=== PATIENT | female | born 1940 | race Caucasian/White ===

== ENCOUNTER 2016-04-25 14:22 | Emergency (ER) | payer OTHER ==
[~2016-04-25] VITALS: Ht 160 cm; Wt 64.5 kg
[~2016-04-25 14:22] MED LIST: ACIP20TA19 PO; ALBU17I INH; BUPR-175 PO; LEVO75TA42 PO; PYRI200T4 PO; SULF-154 PO; TRAZ50TA4 PO
[2016-04-25 14:31] VITALS: BP 138/63; PULSE 95; RESP 16; TEMP 97.6; O2SAT 97
[2016-04-25] MEDS ORDERED: SODIUM CHLOR 0.9% 1000 ML INJ 1,000 ML IV SCH (14:47)
[2016-04-25] MEDS ORDERED: ONDANSETRON HCL 4 MG/2 ML VIAL IVP ONE (15:00)
[2016-04-25] MEDS ORDERED: SODIUM CHLORIDE 0.9% FLUSH 5 ML FLUSH IVF PRN (15:00)
[2016-04-25] MEDS ORDERED: FAMOTIDINE 20 MG/2 ML VIAL IV PUSH ONE (15:00)
[2016-04-25] MEDS ORDERED: MORPHINE SULFATE 4 MG/ML INJ IV PUSH ONE (15:00)
[2016-04-25] MEDS ORDERED: LEVO25TA4 PO (15:03)
[2016-04-25 15:21] LABS: BLOOD, URINE NEG (NEG); GLUCOSE,URINE NEG (NEG); KETONE, URINE NEG (NEG); NITRITE,URINE NEG (NEG); PH, URINE 5.5 (5.0-8.5)
[2016-04-25 15:22] LABS: AUTOMATED NEUTROPHIL # 7.2 TH/MM3 (1.8-7.7); BASOPHIL # 0.1 TH/MM3 (0-0.2); BASOPHIL % 1.7 % (0.0-2.0); EOSINOPHIL # 0.1 TH/MM3 (0-0.4); HEMATOCRIT 42.6 % (35.0-46.0); HEMO FLAGS DIFF FINAL; LYMPHOCYTE # 0.8 TH/MM3 (1.0-4.8); MEAN CELL VOLUME 86.2 FL (80.0-100.0); MEAN CORPUSCULAR HEMOGLOBIN 28.7 PG (27.0-34.0); MEAN CORPUSCULAR HGB CONC 33.3 % (32.0-36.0); MONO % 3.1 % (0.0-8.0); NEUT % 85.2 % (16.0-70.0); PLATELET COUNT 174 TH/MM3 (150-450); RED BLOOD COUNT 4.94 MIL/MM3 (4.00-5.30); RED CELL DISTRIBUTION WIDTH 13.2 % (11.6-17.2); WHITE BLOOD COUNT 8.5 TH/MM3 (4.0-11.0)
[2016-04-25 15:31] LABS: COMMENT (UR) CULT NOT INDICATED; CULTURE IF INDICATED CULT NOT INDICATED; METHOD OF COLLECTION CLEAN CATCH; MUCUS URINE FEW /lpf (OCC); SQUAMOUS EPITHELIAL CELL URINE 0-5 /hpf (0-5); URINE COLOR YELLOW (YELLW/STRAW); WBC, URINE 0-2 /hpf (0-5)
[2016-04-25 15:39] LABS: POTASSIUM 4.1 MEQ/L (3.5-5.1)
[2016-04-25 15:44] VITALS: O2SAT 98
[2016-04-25 15:44] LABS: APTT (PATIENT) 25.7 SEC (24.3-30.1); BICARBONATE 23.6 MEQ/L (21.0-32.0); INTERNATIONAL NORMALIZED RATIO 0.9 RATIO; PROTHROMBIN TIME - PATIENT 10.4 SEC (9.8-11.6)
--- NOTE | 2016-04-25 15:47 | PD ---
HPI Chief Complaint: Abdominal Pain Time Seen by Provider: 14:40 Travel History International Travel<30 days: No Contact w/Intl Traveler<30days: No Traveled to known affect area: No History of Present Illness HPI Patient is a 76-year-old female who comes in complaining of abdominal pain that started earlier today. She thought she might have been constipated, so she took a laxative and had a bowel movement, but continued to have pain to her belly. She says she has been feeling nauseous. She denies any dysuria. She says the pain is in the middle of her abdomen. She denies seeing any blood in her stool. She denies any fever or chills. She has multiple other complaints of been going on for several months, which she attributes to severe anxiety. She has been taking Xanax as needed for anxiety. [facility] Past Medical History Anxiety: Yes Depression: Yes GERD: Yes Hiatal Hernia: Yes Thyroid Disease: Yes Influenza Vaccination: Yes ?: Not Social History Alcohol Use: Yes (WINE WITH DINNER) Tobacco Use: No Substance Use: No Allergies-Medications (Allergen,Severity, Reaction): Coded Allergies: Prednisone (Verified Allergy, Mild, 05/11/07) Reported Meds & Prescriptions Reported Meds & Active Scripts Active Zofran Odt (Ondansetron Odt) 4 Mg Tab 4 Mg SL Q6HR PRN Bentyl (Dicyclomine HCl) 20 Mg Tab 20 Mg PO QID PRN Reported Levothyroxine (Levothyroxine Sodium) 25 Mcg Tab 25 Mcg PO DAILY Review of Systems Except as stated in HPI: all other systems reviewed are Neg General / Constitutional: No: Fever, Chills Eyes: No: Blurred Vision HENT: No: Headaches Cardiovascular: No: Chest Pain or Discomfort Respiratory: No: Shortness of Breath Gastrointestinal: Positive: Nausea, Vomiting, Abdominal Pain, No: Diarrhea Genitourinary: No: Dysuria, Flank Pain Skin: No Rash, No Change in Pigmentation Neurologic: No: Weakness, Dizziness Physical Exam Narrative GENERAL: Awake and alert in no acute distress. SKIN: Warm and dry. HEAD: Atraumatic. Normocephalic. EYES: Pupils equal and round. No scleral icterus. ENT: Mucous membranes pink and moist. NECK: Trachea midline. No JVD. CARDIOVASCULAR: Regular rate and rhythm. No murmur appreciated. RESPIRATORY: No accessory muscle use. Clear to auscultation. Breath sounds equal bilaterally. GASTROINTESTINAL: Abdomen soft, nondistended. Mild diffuse tenderness, worse in the epigastric area. No rebound or guarding. No CVA tenderness. MUSCULOSKELETAL: No obvious deformities. No clubbing. No cyanosis. No edema. NEUROLOGICAL: Awake and alert. No obvious cranial nerve deficits. Motor grossly within normal limits. Normal speech. PSYCHIATRIC: Appropriate mood and affect; insight and judgment normal. Data Data Last Documented VS Vital Signs Date Time Temp Pulse Resp B/P Pulse Ox O2 Delivery O2 Flow Rate FiO2 04/25/16 17:20 76 18 136/74 97 04/25/16 15:44 Room Air 04/25/16 14:31 97.6 Orders Basic Metabolic Panel (Bmp) (04/25/16 14:47) Complete Blood Count With Diff (04/25/16 14:47) Lipase (04/25/16 14:47) Prothrombin Time / Inr (Pt) (04/25/16 14:47) Act Partial Throm Time (Ptt) (04/25/16 14:47) Urinalysis - C+S If Indicated (04/25/16 14:47) Ua Includes Microscopic (04/25/16 14:47) Ct Abd/Pel W Iv Contrast(Rout) (04/25/16 14:47) Iv Access Insert/Monitor (04/25/16 14:47) Ecg Monitoring (04/25/16 14:47) Oximetry (04/25/16 14:47) Morphine Inj (Morphine Inj) (04/25/16 15:00) Ondansetron Inj (Zofran Inj) (04/25/16 15:00) Sodium Chlor 0.9% 1000 Ml Inj (Ns 1000 M (04/25/16 14:47) Sodium Chloride 0.9% Flush (Ns Flush) (04/25/16 15:00) Electrocardiogram (04/25/16 14:47) Famotidine Inj (Pepcid Inj) (04/25/16 15:00) Hepatic Functional Panel (04/25/16 14:47) Iohexol 300 Inj (Omnipaque 300 Inj) (04/25/16 16:04) Labs Laboratory Tests Test 04/25/16 15:14 White Blood Count 8.5 TH/MM3 Red Blood Count 4.94 MIL/MM3 Hemoglobin 14.2 GM/DL Hematocrit 42.6 % Mean Corpuscular Volume 86.2 FL Mean Corpuscular Hemoglobin 28.7 PG Mean Corpuscular Hemoglobin 33.3 % Concent Red Cell Distribution Width 13.2 % Platelet Count 174 TH/MM3 Mean Platelet Volume 9.3 FL Neutrophils (%) (Auto) 85.2 % Lymphocytes (%) (Auto) 9.0 % Monocytes (%) (Auto) 3.1 % Eosinophils (%) (Auto) 1.0 % Basophils (%) (Auto) 1.7 % Neutrophils # (Auto) 7.2 TH/MM3 Lymphocytes # (Auto) 0.8 TH/MM3 Monocytes # (Auto) 0.3 TH/MM3 Eosinophils # (Auto) 0.1 TH/MM3 Basophils # (Auto) 0.1 TH/MM3 CBC Comment DIFF FINAL Differential Comment Prothrombin Time 10.4 SEC Prothromb Time International 0.9 RATIO Ratio Activated Partial 25.7 SEC Thromboplast Time Urine Collection Type CLEAN CATCH Urine Color YELLOW Urine Turbidity CLEAR Urine pH 5.5 Urine Specific [place] 1.031 Urine Protein NEG mg/dL Urine Glucose (UA) NEG mg/dL Urine Ketones NEG mg/dL Urine Occult Blood NEG Urine Nitrite NEG Urine Bilirubin NEG Urine Leukocyte Esterase NEG Urine WBC 0-2 /hpf Urine Squamous Epithelial 0-5 /hpf Cells Urine Mucus FEW /lpf Microscopic Urinalysis Comment CULT NOT INDICATED Urine Collection Time 15:14 Sodium Level 143 MEQ/L Potassium Level 4.1 MEQ/L Chloride Level 110 MEQ/L Carbon Dioxide Level 23.6 MEQ/L Anion Gap 9 MEQ/L Blood Urea Nitrogen 15 MG/DL Creatinine 0.84 MG/DL Estimat Glomerular Filtration 66 ML/MIN Rate Random Glucose 96 MG/DL Calcium Level 8.6 MG/DL Total Bilirubin 0.6 MG/DL Direct Bilirubin 0.1 MG/DL Indirect Bilirubin 0.5 MG/DL Aspartate Amino Transf 18 U/L (AST/SGOT) Alanine Aminotransferase 17 U/L (ALT/SGPT) Alkaline Phosphatase 68 U/L Total Protein 7.3 GM/DL Albumin 3.1 GM/DL Lipase 129 U/L [facility] Medical Decision Making Medical Screen Exam Complete: Yes Emergency Medical Condition: Yes Differential Diagnosis Gastroenteritis versus gastritis versus GERD versus colitis versus cholecystitis versus diverticulitis Narrative Course Patient is a 76-year-old female who comes in complaining of abdominal pain. Exam shows mild diffuse tenderness, worse in the epigastric region. IV established, labs sent. Labs show no acute abnormalities. Patient given Zofran , fluids, famotidine with 2 mg of morphine. To have CT of her abdomen and pelvis. Signed out to Dr. Charles to follow-up results and disposition appropriately. Scripts Ondansetron Odt (Zofran Odt)4 Mg Tab4 Mg SL Q6HR PRN (Nausea/Vomiting) #30 TAB Ref 0 Prov:Victorino Charles MD 04/25/16 Dicyclomine (Bentyl)20 Mg Tab20 Mg PO QID PRN (ABDOMINAL CRAMPING) #20 TAB Ref 0 Prov:Victorino Charles MD 04/25/16 Condition: Stable Anna Devries MD Apr 25, 2016 15:47
[2016-04-25 15:48] LABS: INDIRECT BILIRUBIN 0.5 MG/DL (0.0-0.8); TOTAL BILIRUBIN ADULT 0.6 MG/DL (0.2-1.0)
[2016-04-25] MEDS ORDERED: IOHEXOL 300 MG/ML 50 ML BTL (for RAD DIAG) IV ONE (16:04)
--- NOTE | 2016-04-25 16:21 | RADHPO ---
EXAM DATE/TIME: 04/25/2016 16:00 [place] COMPARISON: No previous studies available for comparison. INDICATIONS : Lower abdomen pain today. IV CONTRAST: 75 cc Omnipaque 300 (iohexol) IV ORAL CONTRAST: No oral contrast ingested. RADIATION DOSE: 8.09 CTDIvol (mGy) MEDICAL HISTORY : Hernia, hiatal. Gastroesophageal reflux disease. SURGICAL HISTORY : None. ENCOUNTER: Initial ACUITY: 1 day PAIN SCALE: 9/10 LOCATION: Bilateral lower quadrant abdomen TECHNIQUE: Volumetric scanning of the abdomen and pelvis was performed. Using automated exposure control and adjustment of the mA and/or kV according to patient size, radiation dose was kept as low as reasonably achievable to obtain optimal diagnostic quality images. FINDINGS: LOWER LUNGS: The visualized lower lungs are clear. LIVER: Homogeneous low-density consistent with fatty metamorphosis without lesion. There is no d ilation of the biliary tree. No calcified gallstones. Gallbladder cys luminal structure without wall thickening or stones SPLEEN: Normal size without lesion. PANCREAS: Within normal limits. KIDNEYS: Normal in size and shape. There is no mass, stone or hydronephrosis. ADRENAL GLANDS: Within normal limits. VASCULAR: There is no aortic aneurysm. BOWEL/MESENTERY: The stomach, small bowel, and colon demonstrate no acute abnormality. There is no free intraperitoneal air or fluid. ABDOMINAL WALL: Within normal limits. RETROPERITONEUM: There is no lymphadenopathy. BLADDER: No wall thickening or mass. REPRODUCTIVE: Within normal limits. INGUINAL: There is no lymphadenopathy or hernia. MUSCULOSKELETAL: Within normal limits for patient age. Facet arthritic changes of the lower lumba r spine CONCLUSION: Benign abdomen. Fatty metamorphosis of the liver Jeremias Herndon MD on April 25, 2016 at 16:16 Board Certified Radiologist. This report was verified electronically.
[2016-04-25] MEDS ORDERED: BENT20TA PO (16:53)
[2016-04-25] MEDS ORDERED: ZOFR4TAB3 SL (16:53)
--- NOTE | 2016-04-25 16:53 | PD ---
Data Data Last Documented VS Vital Signs Date Time Temp Pulse Resp B/P Pulse Ox O2 Delivery O2 Flow Rate FiO2 04/25/16 17:20 76 18 136/74 97 04/25/16 15:44 Room Air 04/25/16 14:31 97.6 Orders Basic Metabolic Panel (Bmp) (04/25/16 14:47) Complete Blood Count With Diff (04/25/16 14:47) Lipase (04/25/16 14:47) Prothrombin Time / Inr (Pt) (04/25/16 14:47) Act Partial Throm Time (Ptt) (04/25/16 14:47) Urinalysis - C+S If Indicated (04/25/16 14:47) Ua Includes Microscopic (04/25/16 14:47) Ct Abd/Pel W Iv Contrast(Rout) (04/25/16 14:47) Iv Access Insert/Monitor (04/25/16 14:47) Ecg Monitoring (04/25/16 14:47) Oximetry (04/25/16 14:47) Morphine Inj (Morphine Inj) (04/25/16 15:00) Ondansetron Inj (Zofran Inj) (04/25/16 15:00) Sodium Chlor 0.9% 1000 Ml Inj (Ns 1000 M (04/25/16 14:47) Sodium Chloride 0.9% Flush (Ns Flush) (04/25/16 15:00) Electrocardiogram (04/25/16 14:47) Famotidine Inj (Pepcid Inj) (04/25/16 15:00) Hepatic Functional Panel (04/25/16 14:47) Iohexol 300 Inj (Omnipaque 300 Inj) (04/25/16 16:04) Labs Laboratory Tests Test 04/25/16 15:14 White Blood Count 8.5 TH/MM3 Red Blood Count 4.94 MIL/MM3 Hemoglobin 14.2 GM/DL Hematocrit 42.6 % Mean Corpuscular Volume 86.2 FL Mean Corpuscular Hemoglobin 28.7 PG Mean Corpuscular Hemoglobin 33.3 % Concent Red Cell Distribution Width 13.2 % Platelet Count 174 TH/MM3 Mean Platelet Volume 9.3 FL Neutrophils (%) (Auto) 85.2 % Lymphocytes (%) (Auto) 9.0 % Monocytes (%) (Auto) 3.1 % Eosinophils (%) (Auto) 1.0 % Basophils (%) (Auto) 1.7 % Neutrophils # (Auto) 7.2 TH/MM3 Lymphocytes # (Auto) 0.8 TH/MM3 Monocytes # (Auto) 0.3 TH/MM3 Eosinophils # (Auto) 0.1 TH/MM3 Basophils # (Auto) 0.1 TH/MM3 CBC Comment DIFF FINAL Differential Comment Prothrombin Time 10.4 SEC Prothromb Time International 0.9 RATIO Ratio Activated Partial 25.7 SEC Thromboplast Time Urine Collection Type CLEAN CATCH Urine Color YELLOW Urine Turbidity CLEAR Urine pH 5.5 Urine Specific [place] 1.031 Urine Protein NEG mg/dL Urine Glucose (UA) NEG mg/dL Urine Ketones NEG mg/dL Urine Occult Blood NEG Urine Nitrite NEG Urine Bilirubin NEG Urine Leukocyte Esterase NEG Urine WBC 0-2 /hpf Urine Squamous Epithelial 0-5 /hpf Cells Urine Mucus FEW /lpf Microscopic Urinalysis Comment CULT NOT INDICATED Urine Collection Time 15:14 Sodium Level 143 MEQ/L Potassium Level 4.1 MEQ/L Chloride Level 110 MEQ/L Carbon Dioxide Level 23.6 MEQ/L Anion Gap 9 MEQ/L Blood Urea Nitrogen 15 MG/DL Creatinine 0.84 MG/DL Estimat Glomerular Filtration 66 ML/MIN Rate Random Glucose 96 MG/DL Calcium Level 8.6 MG/DL Total Bilirubin 0.6 MG/DL Direct Bilirubin 0.1 MG/DL Indirect Bilirubin 0.5 MG/DL Aspartate Amino Transf 18 U/L (AST/SGOT) Alanine Aminotransferase 17 U/L (ALT/SGPT) Alkaline Phosphatase 68 U/L Total Protein 7.3 GM/DL Albumin 3.1 GM/DL Lipase 129 U/L [facility] Supervised Visit with FAUSTO: No Narrative Course 16 patient care assumed from Dr. Devries at 1600, patient's 76-year-old female had an episode of what she thought was constipation this morning took an unknown suppository which helped her have bowel movement but abdominal cramping persisted particularly periumbilical. Patient also took some Pepto-Bismol at home it didn't help so she decided to put her fingers down her throat and try to throw it up. Patient states that she called her sister for some Sandra- [place] who said maybe sugar checked out in the emergency department. Labs reviewed and CBC is within normal limits though there is neutrophil predominance. Used a is negative, chemistries lipase LFTs negative. CT scan shows no intra-abdominal abnormality. Patient is revisited by myself abdomen exam is completely benign currently she appears well in no apparent distress. She is feeling mildly better after interventions by Dr. Devries. Discussed with her need follow-up with a primary care physician since medic management over the next few days and return to ED criteria. Diagnosis Primary Impression: Abdominal pain Qualified Code: R10.33 - Periumbilical abdominal pain Med/Other Pt SpecificInfo: Prescription(s) given Scripts Ondansetron Odt (Zofran Odt)4 Mg Tab4 Mg SL Q6HR PRN (Nausea/Vomiting) #30 TAB Ref 0 Prov:Victorino Charles MD 04/25/16 Dicyclomine (Bentyl)20 Mg Tab20 Mg PO QID PRN (ABDOMINAL CRAMPING) #20 TAB Ref 0 Prov:Victorino Charles MD 04/25/16 Disposition: 01 DISCHARGE HOME Condition: Stable Victorino Charles MD Apr 25, 2016 16:53
[2016-04-25 17:20] VITALS: BP 136/74
--- NOTE | 2016-04-26 17:16 | EKG ---
Date Performed: 04/25/2016 Time Performed: 14:54:58 PTAGE: 76 years EKG: Sinus rhythm Possible inferior infarct - old Abnormal ECG NO PREVIOUS TRACING DOCTOR: Luisito Calvin Interpretating Date/Time 04/26/2016 17:14:51
== END 2016-04-25 17:21 | disposition home or self-care (01) ==
LOC: PHED 14:22
DX: R10.9 Unspecified abdominal pain (principal); E07.9 Disorder of thyroid, unspecified; R94.31 Abnormal electrocardiogram [ECG] [EKG]
CPT/HCPCS: 74177; 80048; 80076; 81001; 83690; 85025; 85610; 85730; 93005; 96374; 96375; 99284; J2270; J2405; J7030; Q9967

== ENCOUNTER 2017-01-24 08:36 | Emergency (ER) | payer OTHER ==
[~2017-01-24] VITALS: Ht 157.5 cm; Wt 63.0 kg
[~2017-01-24 08:36] MED LIST changes: -ACIP20TA19 PO; -ALBU17I INH; +BENT20TA PO; -BUPR-175 PO; +LEVO25TA4 PO; -LEVO75TA42 PO; -PYRI200T4 PO; -SULF-154 PO; -TRAZ50TA4 PO; +ZOFR4TAB3 SL
[2017-01-24 08:38] VITALS: BP 154/69; PULSE 95; RESP 18; TEMP 98.4; O2SAT 96
[2017-01-24] MEDS ORDERED: HYDR-3516 PO (08:48)
[2017-01-24] MEDS ORDERED: CYCL1TAB29 PO (08:48)
--- NOTE | 2017-01-24 08:48 | PD ---
HPI Chief Complaint: Back/ Neck Pain or Injury Time Seen by Provider: 08:44 Travel History International Travel<30 days: No Contact w/Intl Traveler<30days: No Traveled to known affect area: No History of Present Illness HPI Patient presents with aggravated left sciatic pain. Denies any misstep or fall. Denies any heavy lifting. Poor response to nonsteroidal anti- inflammatories. Affecting activities of daily living. PFSH Past Medical History Anxiety: Yes Depression: Yes GERD: Yes Hiatal Hernia: Yes Thyroid Disease: Yes ?: Not Social History Alcohol Use: Yes (WINE WITH DINNER) Tobacco Use: No Substance Use: No Allergies-Medications (Allergen,Severity, Reaction): Coded Allergies: prednisone (Unverified Allergy, Mild, 01/24/17) Reported Meds & Prescriptions Reported Meds & Active Scripts Active Zofran Odt (Ondansetron Odt) 4 Mg Tab 4 Mg SL Q6HR PRN Bentyl (Dicyclomine HCl) 20 Mg Tab 20 Mg PO QID PRN Reported Levothyroxine (Levothyroxine Sodium) 25 Mcg Tab 25 Mcg PO DAILY Review of Systems General / Constitutional: No: Fever Eyes: No: Visual changes HENT: No: Headaches Cardiovascular: No: Chest Pain or Discomfort Respiratory: No: Shortness of Breath Gastrointestinal: No: Abdominal Pain Genitourinary: No: Dysuria Musculoskeletal: No: Pain Skin: No Rash Neurologic: No: Weakness Psychiatric: No: Depression Endocrine: No: Polydipsia Hematologic/Lymphatic: No: Easy Bruising Physical Exam Narrative GENERAL: Well-nourished, well-developed patient. SKIN: Focused skin assessment warm/dry. HEAD: Normocephalic. EYES: No scleral icterus. No injection or drainage. NECK: Supple, trachea midline. No JVD or lymphadenopathy. CARDIOVASCULAR: Regular rate and rhythm without murmurs, gallops, or rubs. RESPIRATORY: Breath sounds equal bilaterally. No accessory muscle use. GASTROINTESTINAL: Abdomen soft, non-tender, nondistended. MUSCULOSKELETAL: No cyanosis, or edema. Examination lumbar sacral spine reveals no midline tenderness left-sided paraspinous pain radiating to gluteus negative straight leg raise BACK: Nontender without obvious deformity. No CVA tenderness. Data Data Last Documented VS Vital Signs Date Time Temp Pulse Resp B/P (MAP) Pulse Ox O2 Delivery O2 Flow Rate FiO2 01/24/17 08:38 98.4 95 18 154/69 (97) 96 MDM Medical Decision Making Medical Screen Exam Complete: Yes Emergency Medical Condition: Yes Differential Diagnosis Lumbago, degenerative disc disease, sciatic pain Narrative Course Assessment and plan discussed with patient at bedside Diagnosis Primary Impression: Left sciatic nerve pain Patient Instructions: General Instructions Additional Instructions: Encourage nonsteroidal anti-inflammatories warm heat gentle stretching and strengthening and massage. Follow-up with PCP. Return to emergency room with any onset of new symptoms. Med/Other Pt SpecificInfo: Prescription(s) given Scripts Cyclobenzaprine (Flexeril) 10 Mg Tab 5-10 MG PO TID for back pain, #20 TAB 0 Refills Prov: Rex Beckham MD 01/24/17 Hydrocodone-Acetaminophen (Hydrocodone-Acetaminophen) 5-325 mg Tab 1 TAB PO Q6H Y for PAIN, #20 TAB 0 Refills Prov: Rex Beckham MD 01/24/17 Disposition: 01 DISCHARGE HOME Condition: Good Rex Beckham MD Jan 24, 2017 08:48
== END 2017-01-24 09:04 | disposition home or self-care (01) ==
LOC: PHED 08:36
DX: M54.32 Sciatica, left side (principal); E07.9 Disorder of thyroid, unspecified; Z86.59 Personal history of other mental and behavioral disorders; Z87.19 Personal history of other diseases of the digestive system
CPT/HCPCS: 99284